=== PATIENT | female | born 1995 | race Two or more races ===

== ENCOUNTER 2018-06-10 22:57 | Emergency (ER) | payer SELFPAY ==
[2018-06-10 23:08] VITALS: BP 130/88; PULSE 82; RESP 22; TEMP 97.7; O2SAT 100
--- NOTE | 2018-06-11 00:14 | C.PDOC ---
History Of Present Illness 22 year old female presents to the ED for evaluation. Patient states that throughout the day, she has been experiencing a sensation of "flashing lights" in both eyes and mild headache. These symptoms resolved prior to arrival. Patient searched the cause of her symptoms on [employer], and is concerned about retinal detachment and presents to the ED for further evaluation. 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 She is asymptomatic upon ED arrival and denies fever, chills, vision change, headache, eye trauma, or extremity numbness/weakness. Time Seen by Provider: 06/10/18 23:46 Chief Complaint (Nursing): Eye Problem History Per: Patient History/Exam Limitations: no limitations Onset/Duration Of Symptoms: Hrs Current Symptoms Are (Timing): Gone Injury To Eye?: No Quality: denies: "Pain" Associated Symptoms: Other (flashing light sensation in eyes ) Additional History Per: Patient Past Medical History Reviewed: Historical Data, Nursing Documentation, Vital Signs Vital Signs: Last Vital Signs Temp 97.7 F 06/10/18 23:03 Pulse 82 06/10/18 23:03 Resp 22 06/10/18 23:03 BP 130/88 06/10/18 23:03 Pulse Ox 100 06/10/18 23:03 - Medical History PMH: No Chronic Diseases Surgical History: No Surg Hx Family History: States: Unknown Family Hx - Social History Hx Alcohol Use: Yes Hx Substance Use: No - Immunization History Hx Tetanus Toxoid Vaccination: No Hx Influenza Vaccination: No Hx Pneumococcal Vaccination: No Review Of Systems Constitutional: Negative for: Fever, Chills, Weakness Eyes: Positive for: Other ((+)"flashing light" sensation in bilateral eyes, no scleral icterus, no trauma). Negative for: Redness ENT: Negative for: Mouth Swelling Cardiovascular: Negative for: Chest Pain Respiratory: Negative for: Shortness of Breath Skin: Negative for: Rash Neurological: Positive for: Headache. Negative for: Weakness, Numbness, Dizziness Physical Exam - Physical Exam Appears: Well, Non-toxic, No Acute Distress Skin: Normal Color, Warm, No Rash Head: Atraumatic, Normacephalic Eye(s): bilateral: Normal Inspection (no scleral icterus ), PERRL, EOMI Ear(s): Bilateral: Normal (no drainage ) Nose: Normal Oral Mucosa: Moist Throat: Normal (no swelling or injection ), No Exudate, Other (airway patent ) Chest: Symmetrical Respiratory: No Accessory Muscle Use, Other (normal inspiratory effort ) Back: Other (ambulating with steady upright gait) Extremity: Normal ROM Extremity: Bilateral: Atraumatic Pulses: Left Radial: Normal, Right Radial: Normal Neurological/Psych: Oriented x3, Normal Speech, Normal Cognition, Normal Cranial Nerves (grossly intact) ED Course And Treatment O2 Sat by Pulse Oximetry: 100 (on RA) Pulse Ox Interpretation: Normal Medical Decision Making Medical Decision Making: Progress: Visual acuity exam was not performed because patient wears contact lenses, but did not have them with her in the ED. Patient is currently deny any significant changes in her vision. Case was discussed with Dr. Marrufo (ED attending), who performed an ultrasound of the eye to rule out retinal detachment. On reassessment, patient is resting comfortably, showing no signs of distress and is asymptomatic at this time. Patient is stable for discharge and is advised to follow up with animal control specialist within 1-2 days for further evaluation. She is advised to return to the ED immediately if symptoms return or worsen. Disposition Counseled Patient/Family Regarding: Diagnosis, Need For Followup - Disposition Referrals: Jaydon Musa MD [Staff Provider] - Disposition: HOME/ ROUTINE Disposition Time: 00:12 Condition: STABLE Additional Instructions: Please follow up with the specialist, return to the ED if symptoms persist or worsen. Forms: [facility] (Indian), General Discharge Instructions - Clinical Impression Clinical Impression: Visual disturbance - PA / [employer] / Resident Statement MD/DO has reviewed & agrees with the documentation as recorded. - Scribe Statement The provider has reviewed the documentation as recorded by the Scribe (Alayna Pride) All medical record entries made by the Scribe were at my direction and personally dictated by me. I have reviewed the chart and agree that the record accurately reflects my personal performance of the history, physical exam, medical decision making, and the department course for this patient. I have also personally directed, reviewed, and agree with the discharge instructions and disposition.
== END 2018-06-11 00:17 | disposition home or self-care (01) ==
LOC: C.ER 22:57
DX: H53.9 Unspecified visual disturbance (principal)